=== PATIENT | male | born 1995 | race Caucasian/White ===

== ENCOUNTER 2017-07-05 11:45 | Emergency (ER) | payer BC ==
[2017-07-05 11:51] VITALS: BP 123/73
== END 2017-07-05 13:40 | disposition home or self-care (01) ==
LOC: ED 11:45
DX: L60.0 Ingrowing nail (principal)
CPT/HCPCS: J0696

== ENCOUNTER 2017-12-25 17:35 | Emergency (ER) | payer BC ==
[~2017-12-25] VITALS: Ht 165.1 cm; Wt 60.0 kg
[2017-12-25 17:58] VITALS: Ht 165.1 cm; Wt 60.0 kg
[2017-12-25 19:10] VITALS: BP 125/85
== END 2017-12-25 19:10 | disposition home or self-care (01) ==
LOC: ED 17:35
DX: A60.00 Herpesviral infection of urogenital system, unspecified (principal)
CPT/HCPCS: 86694

== ENCOUNTER 2018-03-11 18:24 | Emergency (ER) | payer BC ==
[~2018-03-11] VITALS: Ht 165.1 cm; Wt 59.9 kg
[2018-03-11 18:33] VITALS: Ht 165.1 cm; Wt 59.9 kg
[2018-03-11 20:12] VITALS: BP 149/97
== END 2018-03-11 20:12 | disposition left against medical advice (07) ==
LOC: ED 18:24
DX: Z53.21 Procedure and treatment not carried out due to patient leaving prior to being seen by health care provider (principal)

== ENCOUNTER 2018-03-12 17:24 | Emergency (ER) | payer BC ==
[~2018-03-12] VITALS: Ht 165.1 cm; Wt 60.3 kg
[2018-03-12 17:41] VITALS: BP 125/71; Ht 165.1 cm; Wt 60.3 kg
== END 2018-03-12 18:43 | disposition home or self-care (01) ==
LOC: ED 17:24
DX: K12.0 Recurrent oral aphthae (principal); Z86.19 Personal history of other infectious and parasitic diseases

== ENCOUNTER 2018-06-06 08:34 | Emergency (ER) | payer BC ==
[~2018-06-06] VITALS: Ht 165.1 cm; Wt 63.5 kg
[2018-06-06 08:44] VITALS: BP 137/88; Ht 165.1 cm; Wt 63.5 kg
== END 2018-06-06 09:54 | disposition home or self-care (01) ==
LOC: ED 08:34
DX: T78.49XA Other allergy, initial encounter (principal); X58.XXXA Exposure to other specified factors, initial encounter
CPT/HCPCS: J7512

== ENCOUNTER 2019-10-01 13:55 | Emergency (ER) | payer BC ==
[~2019-10-01] VITALS: Ht 165.1 cm; Wt 66.7 kg
[2019-10-01 13:58] VITALS: Ht 165.1 cm; Wt 66.7 kg
[2019-10-01 16:49] VITALS: BP 123/56
== END 2019-10-01 16:49 | disposition home or self-care (01) ==
LOC: ED 13:55
DX: H66.92 Otitis media, unspecified, left ear (principal)

== ENCOUNTER 2020-10-13 17:04 | Emergency (ER) | payer BC ==
[~2020-10-13] VITALS: Ht 170.2 cm; Wt 77.1 kg
[2020-10-13 17:15] VITALS: Ht 170.2 cm; Wt 77.1 kg
[2020-10-13] MEDS ORDERED: IBUPROFEN600 MG PO (17:45)
[2020-10-13 17:57] VITALS: BP 129/81
== END 2020-10-13 17:57 | disposition home or self-care (01) ==
LOC: ED 17:04
DX: M25.461 Effusion, right knee (principal)

== ENCOUNTER 2020-10-19 17:35 | Emergency (ER) | payer OTHER ==
[~2020-10-19] VITALS: Ht 165.1 cm; Wt 75.7 kg
[~2020-10-19 17:35] MED LIST: IBUPROFEN600 MG PO
[2020-10-19 17:53] VITALS: Ht 165.1 cm; Wt 75.7 kg
[2020-10-19 20:14] VITALS: BP 126/69
== END 2020-10-19 20:14 | disposition home or self-care (01) ==
LOC: ED 17:35
DX: S89.91XA Unspecified injury of right lower leg, initial encounter (principal); M25.461 Effusion, right knee; X58.XXXA Exposure to other specified factors, initial encounter; Y93.89 Activity, other specified; Y92.89 Other specified places as the place of occurrence of the external cause; Y99.8 Other external cause status